=== PATIENT | female | born 1980 | race Caucasian/White ===

== ENCOUNTER → 2017-07-27 | Outpatient (CLI) | payer OTHER | END | disposition home or self-care (01) | LOC: CFH 15:36 | PROVIDERS: ATTEND Radiology Diagnostic Radiology | DX: O09.01 Supervision of pregnancy with history of infertility, first trimester (principal); O30.001 Twin pregnancy, unspecified number of placenta and unspecified number of amniotic sacs, first trimester; Z3A.01 Less than 8 weeks gestation of pregnancy | CPT/HCPCS: 76801 ==